=== PATIENT | female | born 1985 | race Caucasian/White ===

== ENCOUNTER 2017-02-24 10:27 | Emergency (ER) | payer MEDICARE, OTHER | END 2017-02-24 14:18 | disposition home or self-care (01) | LOC: ER 10:27 | DX: K08.89 Other specified disorders of teeth and supporting structures (principal); I10 Essential (primary) hypertension; Z98.890 Other specified postprocedural states; F17.210 Nicotine dependence, cigarettes, uncomplicated; Z88.2 Allergy status to sulfonamides; Z88.5 Allergy status to narcotic agent; Z88.6 Allergy status to analgesic agent; Z79.899 Other long term (current) drug therapy; Z79.1 Long term (current) use of non-steroidal anti-inflammatories (NSAID) | CPT/HCPCS: 99282; 99283 ==

== ENCOUNTER 2017-03-01 19:33 | Emergency (ER) | payer MEDICARE, OTHER | END 2017-03-01 21:44 | disposition home or self-care (01) | LOC: ER 19:33 | DX: T22.111A Burn of first degree of right forearm, initial encounter (principal); X08.8XXA Exposure to other specified smoke, fire and flames, initial encounter; Y93.G2 Activity, grilling and smoking food; J44.9 Chronic obstructive pulmonary disease, unspecified; F17.210 Nicotine dependence, cigarettes, uncomplicated; Z88.8 Allergy status to other drugs, medicaments and biological substances; Z88.6 Allergy status to analgesic agent; Z79.899 Other long term (current) drug therapy | CPT/HCPCS: 99070; 99283 ==

== ENCOUNTER 2017-05-12 14:37 | Emergency (ER) | payer MEDICARE, OTHER | END 2017-05-12 17:00 | disposition home or self-care (01) | LOC: ER 14:37 | DX: M54.5 Low back pain (principal); I10 Essential (primary) hypertension; F17.210 Nicotine dependence, cigarettes, uncomplicated; Z88.2 Allergy status to sulfonamides; Z88.8 Allergy status to other drugs, medicaments and biological substances; Z88.5 Allergy status to narcotic agent; Z79.899 Other long term (current) drug therapy; Z79.1 Long term (current) use of non-steroidal anti-inflammatories (NSAID) | CPT/HCPCS: 99282; 99283 ==

== ENCOUNTER 2017-05-17 15:09 | Emergency (ER) | payer MEDICARE, OTHER ==
[2017-05-17 15:32] LABS: URINE BILIRUBIN NEGATIVE (NEGATIVE); URINE BLOOD 1+ (NEGATIVE); URINE GLUCOSE (UA) 100 mg/dL (NORMAL); URINE KETONE TRACE (NEGATIVE); URINE LEUKOCYTE ESTERASE TRACE (NEGATIVE); URINE NITRATE NEGATIVE (NEGATIVE); URINE PROTEIN TRACE (NEGATIVE)
[2017-05-17 16:28] LABS: URINE BACTERIA FEW (NONE SEEN); URINE MUCUS TRACE; URINE RBC 0-5 /[HPF] (0-2); URINE SQUAMOUS EPITHELIAL CELL 0-10 /[HPF] (NONE SEEN); URINE WBC 0-5 /[HPF] (0-5)
== END 2017-05-17 19:52 | disposition home or self-care (01) ==
LOC: ER 15:09
PROVIDERS: Emergency Medicine
DX: M54.40 Lumbago with sciatica, unspecified side (principal); R31.9 Hematuria, unspecified; R20.0 Anesthesia of skin; R32 Unspecified urinary incontinence; G25.81 Restless legs syndrome; R73.09 Other abnormal glucose; Z88.2 Allergy status to sulfonamides; Z88.5 Allergy status to narcotic agent; Z88.6 Allergy status to analgesic agent; Z79.899 Other long term (current) drug therapy; Z79.1 Long term (current) use of non-steroidal anti-inflammatories (NSAID)
CPT/HCPCS: 36415; 74150; 81001; 81025; 96374; 99070; 99283-25; 99284